=== PATIENT | male | born 1990 ===

== ENCOUNTER 2022-09-10 10:40 | Emergency (ER) | payer BC, SELFPAY ==
[2022-09-10 10:47] VITALS: BP 154/77; PULSE 80; RESP 20; TEMP 36.4; O2SAT 100; BMI 19.9
[2022-09-10 11:30] VITALS: BP 121/81; PULSE 57; RESP 16; O2SAT 99
[2022-09-10] MEDS: diphenhydrAMINE 50 MG/ML inj 25 MG IVP (11:45)
--- NOTE | 2022-09-10 11:54 | ED_ITS ---
HPI - General Adult General Chief complaint: Shortness of Breath/Dyspnea Stated complaint: having allergic reaction Time Seen by Provider: 09/10/22 11:03 Source: patient and family Mode of arrival: ambulatory Limitations: no limitations History of Present Illness HPI narrative: 32-year-old male coming in today concerned about chest pressure. Patient tells me that he has mast cell activation syndrome and the for the last 2 weeks he has had a flare-up that he can not control. He states that this last Monday he used his EpiPen 2 times and then on another 2 times. He is also on daily prednisone at 40 mg daily. He tells me that several years ago this occurred as well where he was not able to eat anything orally because he ?reacted to everything that went into my mouth?. He therefore lost 100 lb and had to be placed on TPN for a while. He states that this time is not as bad but he is having a hard time controlling his symptoms. He states that his symptoms appear as shortness of breath and inability to catch his breath. He states that right now he does not feel too bad and that his symptoms come and go. His mother tells me that no matter how short of breath he becomes, his oxygen sat uration is always normal but she is concerned that this feeling of shortness of breath causes damage to the vasculature of his lungs. He tells me that his specialist is out with [place] and that he has not been able to get in to contact with his doctor. He tells me he has been to the ER multiple times in the last 2 weeks and that he gets IV Benadryl which helps his symptoms for a good 24 hours. He tells me he cannot take oral Benadryl because he reacts to the pills, feeling short of breath. He also takes daily clonazepam. I go over patient's vital signs with him today which are perfectly normal, he tells me that he believes IV Benadryl would be helpful for him today. I asked him if he wants a tryptase level checked to see if this is indeed a mast cell flare up and he tells me that he does not want to have this done. He tells me that his specialist told him that a tryptase is not always elevated. He tells me that the diagnosis is solid and he is refusing a blood draw. We discussed checking for other things that could cause shortness of breath and patient feels that a further workup is not necessary. He denies cough, fevers or chills, vomiting. He does have nausea. He denies any skin rashes. No tremulousness. No tachycardia. Related Data Home Medications Medication Instructions Recorded Confirmed ketotifen 3 mg PO DAILY 09/10/22 09/10/22 levothyroxine 75 mcg capsule 75 mcg PO DAILY 09/10/22 09/10/22 (Tirosint) prednisone 20 mg tablet 40 mg PO DAILY 09/10/22 09/10/22 Allergies Allergy/AdvReac Type Severity Reaction Status Date / Time amoxicillin Allergy Verified 09/10/22 10:56 Iodinated Contrast Media Allergy Verified 09/10/22 10:56 cefalosporins Allergy Uncoded 09/10/22 11:07 Review of Systems Status of ROS: Reports: 10 or more systems reviewed and unremarkable except as noted in History and below [facility] Social History Smoking Status: Never smoker Do you use any of these nicotine containing products: None How often do you have a drink containing alcohol: never AUDIT-C Alcohol total score: 0 Non-prescribed substance use: denies use Exam Narrative: Exam Narrative: Thin, pale patient in no acute distress. Alert and oriented x3. Answers questions appropriately. Mood and affect are appropriate. Thoughts are goal oriented and rational. Patient speaks in full sentences without needing to catch his breath. He is not tachypneic or tachycardic. HEENT: Normocephalic atraumatic. Pupils are equally round reactive to light. Extraocular muscles are intact. Conjunctivae are moist without any icterus noted. Moist mucous membranes. Cardiovascular: Heart is regular rate and rhythm S1 and S2 are present without any murmurs. Lungs: Clear to auscultation bilaterally no wheezes rhonchi or rales are appreciated. Patient takes deep breaths without any discomfort. Abdomen: Soft and nontender nondistended with normal bowel sounds. No guarding or rebound. Extremities: Bilateral lower extremities are without edema. Normal DP and PT pulses. Skin: Well perfused without any obvious rashes. Const: Vital Signs, click to edit/add: Vital Signs - 24 hr 09/10/22 10:47 Temperature 97.6 F Pulse Rate [Pulse Oximeter] 80 Respiratory Rate 20 Blood Pressure [Ri ght Upper Arm] 154/77 H Pulse Oximetry 100 Oxygen Delivery Me thod Room Air Course Course Hospital Course: IV was established and patient received 25 mg of IV Benadryl. Vital Signs Vital signs: Initial Vital Signs Temperature 97.6 F 09/10/22 10:47 Temperature Source Temporal Artery Scan 09/10/22 10:47 Pulse Rate 80 09/10/22 10:47 Respiratory Rate 20 09/10/22 10:47 Blood Pressure 154/77 H 09/10/22 10:47 Blood Pressure Mean 102 09/10/22 10:47 Blood Pressure Position Sitting 09/10/22 10:47 Pulse Oximetry 100 09/10/22 10:47 Oxygen Delivery Method 09/10/22 10:47 Vital Signs Temperature 97.6 F 09/10/22 10:47 Pulse Rate 80 09/10/22 10:47 Respiratory Rate 20 09/10/22 10:47 Blood Pressure 154/77 H 09/10/22 10:47 Pulse Oximetry 100 09/10/22 10:47 Oxygen Delivery Method 09/10/22 10:47 Temperature 97.6 F 09/10/22 10:47 Pulse Rate 80 09/10/22 10:47 Respiratory Rate 20 09/10/22 10:47 Blood Pressure 154/77 H 09/10/22 10:47 Pulse Oximetry 100 09/10/22 10:47 Oxygen Delivery Method 09/10/22 10:47 Medical Decision Making MDM Narrative Medical decision making narrative: 32-year-old male with subjective symptoms of shortness of breath. At this point again, patient refused any further workup including a tryptase level. He is status post IV Benadryl. He is hemodynamically stable. Will be discharged home to the care of his mother. We discussed reasons to return to the ER. Discharge Plan Discharge Clinical Impression: Breath shortness Patient Disposition: Home, Self-Care Condition: Stable Additional Instructions: Follow-up with your specialist or primary care physician. Prescriptions: No Action prednisone 20 mg tablet 40 mg PO DAILY Rx Instructions: days 11-21 of therapy ketotifen 3 mg PO DAILY levothyroxine [Tirosint] 75 mcg capsule 75 mcg PO DAILY Follow Up/Referrals: Provider,Not a Local [Primary Care Provider] - Stand Alone Forms: [facility] Info Instructions
[2022-09-10 12:00] VITALS: BP 132/83; PULSE 62; RESP 16; O2SAT 100
[2022-09-10 12:30] VITALS: BP 126/82; PULSE 61; RESP 16; O2SAT 99
== END 2022-09-10 12:48 | disposition home or self-care (01) ==
PROVIDERS: Emergency Provider Family Medicine
DX: R06.02 Shortness of breath (principal)
CPT/HCPCS: 96374; 99284; J1200